=== PATIENT | male | born 1990 | race Caucasian/White ===

== ENCOUNTER 2018-09-02 17:13 | Emergency (ER) | payer OTHER ==
[~2018-09-02] VITALS: Ht 170.2 cm; Wt 106.1 kg
[~2018-09-02 17:13] MED LIST: ACETAMINOPHEN-1 EAC1 PO; AMOXICILLIN 50500 MG PO; IBUPROFEN 600600 M1 PO; LIDOCAINE VISC100 M1 MM; NAPROSYN500 MG
[2018-09-02 18:20] VITALS: BP 149/79
== END 2018-09-02 18:22 | disposition home or self-care (01) ==
LOC: M.ERS 17:13
DX: S61.215A Laceration without foreign body of left ring finger without damage to nail, initial encounter (principal); F17.200 Nicotine dependence, unspecified, uncomplicated; W26.0XXA Contact with knife, initial encounter; Y93.89 Activity, other specified; Y92.89 Other specified places as the place of occurrence of the external cause; Y99.8 Other external cause status

== ENCOUNTER 2019-05-02 15:10 | Emergency (ER) | payer OTHER ==
[~2019-05-02] VITALS: Ht 170.2 cm; Wt 112.0 kg
[2019-05-02] MEDS ORDERED: NAPROSYN500 MG PO (16:48)
[2019-05-02] MEDS ORDERED: TYLENOL WITH CO1 TA1 PO (16:48)
[2019-05-02] MEDS ORDERED: LIDODERM1 EACH TRANSDERM (16:53)
[2019-05-02 17:09] VITALS: BP 109/62
== END 2019-05-02 17:10 | disposition home or self-care (01) ==
LOC: M.ERS 15:10
DX: M94.0 Chondrocostal junction syndrome [Tietze] (principal)

== ENCOUNTER 2021-01-11 17:58 | Emergency (ER) | payer OTHER ==
[~2021-01-11] VITALS: Ht 167.6 cm; Wt 117.9 kg
[~2021-01-11 17:58] MED LIST changes: +LIDODERM1 EACH TRANSDERM; +NAPROSYN500 MG PO; +TYLENOL WITH CO1 TA1 PO
[2021-01-11 18:19] LABS: URINE BILIRUBIN NEGATIVE (Negative); URINE BLOOD NEGATIVE (Negative); URINE CLARITY CLEAR; URINE COLOR YELLOW; URINE GLUCOSE-RANDOM NEGATIVE (Negative); URINE KETONES NEGATIVE (Negative); URINE LEUKOCYTES-REFLEX NEGATIVE (Negative); URINE NITRITE-REFLEX NEGATIVE (Negative); URINE PROTEIN NEGATIVE (Negative); URINE SPECIFIC GRAVITY 1.025 (1.005-1.030); URINE UROBILINOGEN 0.2 E.U./dl (0.2-1.0)
[2021-01-11 18:37] LABS: ABSOLUTE BASOPHILS 0.1 thou/uL (0.0-0.2); ABSOLUTE EOSINOPHILS 0.2 thou/uL (0.0-0.7); ABSOLUTE LYMPHOCYTES 2.9 thou/uL (0.8-5.3); ABSOLUTE MONOCYTES 1.2 thou/uL (0.0-1.2); ABSOLUTE NEUTROPHILS 8.8 thou/uL (1.6-8.1); BASOPHILS 0.7 %; EOSINOPHILS 1.2 %; HEMATOCRIT 43.5 % (42.0-52.0); HEMOGLOBIN 14.7 gm/dL (14.0-18.0); MCH 30.9 pg (26.0-34.0); MCHC 33.8 g/dL (28.0-37.0); MCV 91.4 fL (80.0-100.0); MPV 8.5 fl. (7.2-11.1); NUCLEATED RBCS 0 /100WBC; PLATELET COUNT* 267 thou/uL (150-400); POLYS 67.1 %; RBC 4.76 mil/uL (4.50-6.00); RDW-CV 12.9 % (10.5-14.5); WBC 13.2 thou/uL (4.0-11.0)
[2021-01-11 18:48] LABS: CALCIUM 8.8 mg/dL (8.5-10.1); POTASSIUM 4.2 mmol/L (3.5-5.1)
[2021-01-11 18:53] LABS: ALBUMIN 4.1 g/dL (3.4-5.0); TOTAL BILIRUBIN 0.3 mg/dL (<0.1-1.0)
[2021-01-11] MEDS ORDERED: FLEXERIL PO (19:51)
[2021-01-11] MEDS ORDERED: IBUPROFEN 800800 M1 PO (19:51)
[2021-01-11] MEDS ORDERED: MEDROLDOSEPACK PO (19:51)
[2021-01-11 20:04] VITALS: BP 171/75
== END 2021-01-11 20:05 | disposition home or self-care (01) ==
LOC: M.ERS 17:58
PROVIDERS: Nurse Practitioner Family
DX: S29.019A Strain of muscle and tendon of unspecified wall of thorax, initial encounter (principal); X58.XXXA Exposure to other specified factors, initial encounter; Y93.89 Activity, other specified; Y92.89 Other specified places as the place of occurrence of the external cause; Y99.8 Other external cause status